=== PATIENT | female | born 1960 | race Caucasian/White ===

== ENCOUNTER 2019-09-04 07:17 | Outpatient (CLI) | payer BC ==
[2019-09-04 11:21] LABS: Bacteria/HPF 4+ HPF (None Seen); Bilirubin Negative (Negative); Blood, Urine Negative (Negative); Clarity Clear (Clear); Glucose, Urine (Dipstick) Normal (Negative); Leukocyte Negative Leu/uL (Negative); Nitrite Negative (Negative); Protein, Urine (Dipstick) Negative (Neg-Trace); RBC/HPF 0-3 HPF (0-3); Squamous Epithelial 0-3 HPF (0-3); Urobilinogen Normal mg/dL (Less than 2); WBC/HPF 0-3 HPF (0-3)
== END 2019-09-04 07:18 | disposition home or self-care (01) ==
LOC: LABBT 07:17
PROVIDERS: ATTEND Orthopaedic Surgery
DX: Z01.812 Encounter for preprocedural laboratory examination (principal); G56.02 Carpal tunnel syndrome, left upper limb; G56.22 Lesion of ulnar nerve, left upper limb
CPT/HCPCS: 81001

== ENCOUNTER 2019-09-06 06:40 | Day surgery (SDC) | payer BC ==
[2019-09-04 09:13] VITALS: BMI 25.0
[2019-09-06 07:53] LABS: #Basophils 0.1 thou/uL (0.0-0.2); #Eosinphils 0.4 thou/uL (0.0-0.7); #Lymphocytes 2.3 thou/uL (1.20-3.40); #Monocytes 0.7 thou/uL (0.11-0.59); #Neutrophils 5.4 thou/uL (1.40-6.50); %Basophils 0.8 % (0.0-1.0); %Eosinophils 4.2 % (0.0-10.0); %Lymphocytes 25.7 % (21.0-51.0); %Monocytes 8.1 % (0.0-10.0); %Neutrophils 61.2 % (42.0-75.0); Hemoglobin 13.8 g/dL (12.0-16.0); Mean Corpuscular HGB CONC 34.1 g/dL (32.0-36.0); Mean Corpuscular Hemoglobin 29.5 pg (27.0-31.0); Mean Corpuscular Volume 86.4 fL (78.0-98.0); Mean Platelet Volume 7.8 fL (7.4-10.4); Platelet Count 221 thou/uL (130-400); RBC Distribution Width 11.9 % (11.5-14.5); Red Blood Cell (RBC) Count 4.68 mill/uL (4.20-5.40); White Blood Cell (WBC) Count 8.9 thou/uL (4.8-10.8)
[2019-09-06] MEDS ORDERED: Lidocaine 1% w/Epinephrine 1:100K 20 ML VIAL ONE (10:36)
[2019-09-06] MEDS ORDERED: Fentanyl 100 MCG/2 ML VIAL ONE ×2 (10:48→12:13)
[2019-09-06] MEDS ORDERED: Bupivacaine 0.25% HCL 30 ML VIAL ONE (11:08)
[2019-09-06] MEDS ORDERED: Ondansetron PF 4 MG/2 ML Vial ONE (13:25)
[2019-09-06] MEDS ORDERED: PROPOFOL 200 MG/20 ML VIAL ONE (13:25)
[2019-09-06] MEDS ORDERED: Lidocaine 1% PF 5 ML VIAL ONE (13:25)
[2019-09-06] MEDS ORDERED: HYDROcodone/Acetaminophen 5/325 mg Tablet ONE (14:01)
--- NOTE | 2019-09-06 19:16 | OP ---
DATE OF PROCEDURE: 09/06/2019 PREOPERATIVE DIAGNOSES: 1. Left cubital tunnel syndrome. 2. Left carpal tunnel syndrome. POSTOPERATIVE DIAGNOSES: 1. Left cubital tunnel syndrome. 2. Left carpal tunnel syndrome. PROCEDURES PERFORMED: 1. Open cubital tunnel release. 2. Left open carpal tunnel release. CLASSROOM MONITOR: None. ANESTHESIOLOGIST: Brian. ANESTHESIA: Patient received a LMA with 7 cc of 0.25% Marcaine plain in the elbow and 7 cc of 0.25% Marcaine plain in the wrist. ESTIMATED BLOOD LOSS: Less than 10 cc. TOURNIQUET TIME: 30 minutes at 250 mmHg. ANTIBIOTICS: Ancef 2. COMPLICATIONS: None. HISTORY OF PRESENT ILLNESS: Ms. Yin is a 59-year-old female with previous nerve conduction studies that were positive for carpal tunnel syndrome. The patient had sign and symptoms consistent with cubital tunnel. I discussed with the patient risks and benefits of a left open carpal tunnel release and left open cubital tunnel release to include pain, scar, bleeding, infection, damage to vital structures, decreased range of motion and strength, need for further surgeries, failure of procedure, continued pain despite surgical intervention, and loss of life or limb. The patient understood the risks and benefits of the procedure. DESCRIPTION OF PROCEDURE: After time-out was performed, the patient's left lower extremity was prepped and draped in sterile fashion. Tourniquet was brought up and left up for a total of 30 minutes. An incision was made over the patient's ulnar nerve posteriorly down through skin, came down to the patient's Calderon fascia releasing it. We made sure the fascia was released distally in between the muscle belly to ensure it was widened and the nerve was completely released and moved proximally, ensured it was completely released. Used finger to ensure that it was completely released proximally and freed from the transverse carpal ligament. We did an in situ decompression and washed, used the fascia of the Calderon ligament to sew it to the subcutaneous tissues with 0 Vicryl, 2 stitches. We then closed subcu with 2-0 and then 3-0 nylon and injected 7 cc of Marcaine. I then moved distally, used the incision down on the patient's radial aspect of the 4th ray down through skin, proximal up to the Dawkins's cardinal line down to skin, split through the fat, came down through the patient's palmar fascia, split through the patient's palmaris brevis and transverse carpal ligament, ensured it was released completely proximally, protected the nerve throughout, washed, and then closed with 4-0 nylon horizontal mattress stitches, injected 7 cc inside, placed soft tissue dressing, let the tourniquet down after 31 minutes. The patient will follow up in 2 weeks to begin range of motion activities, remove the dressing in 4 to 7 days. Job ID: [id number]
--- NOTE | 2019-09-07 08:29 | HP ---
HISTORY OF PRESENT ILLNESS: Ms. Yin is a 59-year-old female, presents with left hand and left upper extremity numbness and tingling from elbow to wrist. The patient has positive nerve conduction carpal tunnel, pain is 5/10. The pain has been present for several months. The patient has no heat injuries or events. The patient had previous release of her right wrist carpal tunnel and cubital tunnel by Dr. Pardo in April. PAST MEDICAL HISTORY: Includes hypertension, reflux, and hypercholesterolemia. PAST SURGICAL HISTORY: Hysterectomy, nasal surgery, cataract procedure, right trigger thumb release, right cubital tunnel release, and right carpal tunnel release. ALLERGIES: NO KNOWN DRUG ALLERGIES. MEDICATIONS: Include 1. Omeprazole. 2. Phentermine. 3. Rosuvastatin. 4. Triamterene/hydrochlorothiazide. SOCIAL HISTORY: One pack a day. [employer]. 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 She is . Alcohol occasionally. No illicit drug use. PHYSICAL EXAMINATION: GENERAL: Alert and oriented female, in no acute distress. EXTREMITIES: Left elbow shows no swelling, ecchymosis. No wounds noted. Positive tenderness ulnar, positive Tinel's. 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 Sensation diminished in the ulnar distribution of left wrist. Positive Phalen's. Decreased median distribution and ulnar distribution. Positive nerve conduction studies for carpal tunnel with no cubital tunnel noted. IMPRESSION: 1. Left cubital tunnel. 2. Left carpal tunnel. ASSESSMENT AND PLAN: The patient will be taken to the operating suite for a left open cubital tunnel and carpal tunnel release. I discussed risks and benefits of procedure including pain, scar, bleeding, infection, damage to vital structures nerve, decreased range of motion or strength, 12 to 18 months to resolve. I discussed that the patient's pain will likely be improved after this procedure, but sometimes can persist despite the release. I discussed the risk of damage to nerve. I discussed with her wound complications. She understands risks and benefits and elected to proceed. She will be taken back to the operative suite for a left carpal tunnel and cubital tunnel release. Job ID: [id number]
== END 2019-09-06 14:20 | disposition home or self-care (01) ==
LOC: SDC 06:40
PROVIDERS: ATTEND Orthopaedic Surgery
PROC: 01N40ZZ Release Ulnar Nerve, Open Approach (ICD-10-PCS; principal; 2019-09-06)
PROC: 01N50ZZ Release Median Nerve, Open Approach (ICD-10-PCS; principal; 2019-09-06)
DX: G56.02 Carpal tunnel syndrome, left upper limb (principal); G56.22 Lesion of ulnar nerve, left upper limb; I10 Essential (primary) hypertension; K21.9 Gastro-esophageal reflux disease without esophagitis; E78.00 Pure hypercholesterolemia, unspecified; F17.210 Nicotine dependence, cigarettes, uncomplicated; Z79.899 Other long term (current) drug therapy
CPT/HCPCS: 85025; J0690; J2001; J2405; J2704; J3010; S0020

== ENCOUNTER 2023-04-11 18:31 | Inpatient (IN) | payer OTHER ==
[2023-04-11] MEDS ORDERED: Acetaminophen 500 MG TAB PO PRN (22:13)
[2023-04-11 22:24] VITALS: BMI 32.8
[2023-04-11] MEDS ORDERED: Ibuprofen 600 MG TAB PO PRN (22:46)
[2023-04-11] MEDS ORDERED: Ipratropium/Albuterol 3 ML NEB NEB PRN (22:46)
[2023-04-11] MEDS ORDERED: Cyclobenzaprine 10 MG TAB PO PRN (22:46)
[2023-04-11] MEDS ORDERED: traMADol HCl 50 MG TAB PO PRN (22:46)
[2023-04-11] MEDS: Morphine 2 MG/ML VIAL SLOW IVP PRN (23:22)
[2023-04-11] MEDS: Acetaminophen 325 MG TAB PO SCH (23:23)
[2023-04-11] MEDS: Sodium Chloride 0.9% 1,000 ML IV SCH (23:23)
[2023-04-11] MEDS: traMADol HCl 50 MG TAB PO SCH (23:24)
[2023-04-11] MEDS ORDERED: Piperacillin/Tazobactam 3.375 GM in Sodium Chloride 0.9% 100 ML IVPB SCH (23:59)
[2023-04-12 00:08] LABS: #Basophils 0.1 thou/uL (0.0-0.2); #Eosinphils 0.2 thou/uL (0.0-0.7); #Monocytes 0.9 thou/uL (0.11-0.59); #Neutrophils 6.5 thou/uL (1.40-6.50); %Basophils 0.7 % (0.0-1.0); %Eosinophils 2.5 % (0.0-10.0); %Lymphocytes 19.3 % (21.0-51.0); %Monocytes 9.4 % (0.0-10.0); %Neutrophils 67.8 % (42.0-75.0); Hemoglobin 10.6 g/dL (12.0-16.0); Mean Corpuscular HGB CONC 32.6 g/dL (32.0-36.0); Mean Corpuscular Hemoglobin 28.5 pg (27.0-31.0); Mean Corpuscular Volume 87.4 fl (78.0-98.0); Mean Platelet Volume 10.1 fL (7.4-10.4); Platelet Count 210 10x3/uL (130-400); RBC Distribution Width 12.8 % (11.5-14.5); Red Blood Cell (RBC) Count 3.72 mill/uL (4.20-5.40); White Blood Cell (WBC) Count 9.6 10x3/uL (4.8-10.8)
[2023-04-12 00:21] LABS: INR-International Normal Ratio 1.1; PTT 33.9 sec (22.9-36.1); Prothrombin Time 14.3 sec (12.0-14.7)
[2023-04-12 00:32] LABS: BUN (Urea Nitrogen) 17 mg/dL (9.8-20.1); Calc. Creatinine Clearance 96 mL/min (70-130); Calcium 9.5 mg/dL (7.8-10.44); Chloride 106 mmol/L (98-107); Estimated GFR 76; Glucose 127 mg/dL (80-115); Magnesium 1.9 mg/dL (1.6-2.6); Phosphorus 3.1 mg/dL (2.3-4.7); Potassium 3.7 mmol/L (3.5-5.1); Sodium 138 mmol/L (136-145)
[2023-04-12 00:57] LABS: Anion Gap 13 mmol/L (10-20); Carbon Dioxide 24 mmol/L (23-31)
[2023-04-12] MEDS ORDERED: VANCOMYCIN 1.75 GM/500 ML BAG 1.75 GM in Premix Bag 1 BAG IVPB SCH (01:15)
[2023-04-12] MEDS: Acetaminophen 325 MG TAB PO SCH ×4 (05:05→22:51)
[2023-04-12] MEDS: Piperacillin/Tazobactam 3.375 GM in Sodium Chloride 0.9% 100 ML IVPB SCH ×3 (05:06→21:28)
[2023-04-12] MEDS: traMADol HCl 50 MG TAB PO SCH ×4 (05:07→22:52)
[2023-04-12] MEDS: Sodium Chloride 0.9% 1,000 ML IV SCH ×3 (06:42→21:29)
[2023-04-12] MEDS ORDERED: Sodium Chloride 0.9% 500 ML IV SCH ×2 (06:45→08:45)
[2023-04-12] MEDS: Senokot S 8.6-50 MG TAB PO SCH ×2 (09:05→21:29)
[2023-04-12] MEDS ORDERED: Ondansetron PF 4 MG/2 ML Vial IVP PRN (09:12)
[2023-04-12] MEDS ORDERED: Iopamidol 370 76% 100 ML VIAL ONE (09:31)
[2023-04-12] MEDS: VANCOMYCIN 1.25 GM/250 ML BAG 1.25 GM in Premix Bag 1 BAG IVPB SCH (15:55)
[2023-04-12] MEDS: Morphine 2 MG/ML VIAL SLOW IVP PRN ×2 (15:58→21:28)
[2023-04-12] MEDS ORDERED: fentaNYL 50 mcg/mL 1 mL Vial ONE (19:09)
[2023-04-12] MEDS ORDERED: fentaNYL PF 100 MCG/2 ML SYRINGE ONE (19:17)
[2023-04-12] MEDS ORDERED: Promethazine HCl 25 MG/ML VIAL ONE (19:17)
[2023-04-12] MEDS ORDERED: HYDROmorphone 0.5 MG/0.5 ML SYRINGE ONE (19:17)
[2023-04-12] MEDS ORDERED: Piperacillin/Tazobactam 3.375 GM VIAL ONE (19:21)
[2023-04-12] MEDS ORDERED: Sodium Chloride 0.9% 100 ML ONE (19:21)
[2023-04-12] MEDS ORDERED: PROPOFOL 200 MG/20 ML VIAL ONE (19:32)
[2023-04-12] MEDS ORDERED: Lidocaine 1% PF 5 ML VIAL ONE (19:32)
[2023-04-12] MEDS ORDERED: ePHEDrine Sulfate 50 MG/10 ML VIAL ONE (19:32)
[2023-04-12] MEDS ORDERED: Ketorolac Tromethamine 30 MG/ML VIAL ONE (19:32)
[2023-04-12] MEDS ORDERED: Dexamethasone 20 MG/5 ML VIAL ONE (19:32)
[2023-04-12] MEDS ORDERED: Ondansetron PF 4 MG/2 ML Vial ONE (19:32)
[2023-04-12] MEDS ORDERED: Promethazine HCl 25 MG/ML VIAL IM PRN (20:24)
[2023-04-12] MEDS ORDERED: HYDROmorphone 2 MG/ML VIAL SLOW IVP PRN (20:24)
[2023-04-12] MEDS ORDERED: PACU-Morphine 4MG/ML VIAL SLOW IVP PRN (20:24)
[2023-04-12] MEDS ORDERED: Ondansetron HCl/PF 4 MG/2 ML Vial IVP PRN (20:24)
[2023-04-13] MEDS: Morphine 2 MG/ML VIAL SLOW IVP PRN (00:22)
[2023-04-13] MEDS: VANCOMYCIN 1.25 GM/250 ML BAG 1.25 GM in Premix Bag 1 BAG IVPB SCH ×2 (02:25→13:03)
[2023-04-13] MEDS: traMADol HCl 50 MG TAB PO SCH ×2 (04:47→11:50)
[2023-04-13] MEDS: Piperacillin/Tazobactam 3.375 GM in Sodium Chloride 0.9% 100 ML IVPB SCH ×2 (04:48→11:51)
[2023-04-13] MEDS: Acetaminophen 325 MG TAB PO SCH ×2 (06:43→11:49)
[2023-04-13] MEDS: Sodium Chloride 0.9% 1,000 ML IV SCH (07:56)
[2023-04-13] MEDS: Senokot S 8.6-50 MG TAB PO SCH (08:55)
[2023-04-13 09:34] VITALS: TEMP 98
[2023-04-13 12:12] VITALS: BP 112/65
== END 2023-04-13 14:30 | disposition home or self-care (01) | DRG 747 ==
LOC: OBSVTOIN 18:31 → SURG A 18:31
PROVIDERS: ADMIT Surgery; ATTEND Surgery
PROC: 0U9M0ZZ Drainage of Vulva, Open Approach (ICD-10-PCS; principal; 2023-04-12)
DX: N76.4 Abscess of vulva (principal); I10 Essential (primary) hypertension; K21.9 Gastro-esophageal reflux disease without esophagitis; E78.5 Hyperlipidemia, unspecified; Z79.899 Other long term (current) drug therapy; Z90.710 Acquired absence of both cervix and uterus; Z98.890 Other specified postprocedural states
CPT/HCPCS: 36415; 74177; 83735; 84100; 85610; 85730; 86850; 86900; 86901; 87070; 87077; 87186; 87205; 97139; J1100; J1170; J1885; J2272; J2405; J2543; J2550; J2704; J3010; J3370; J3490; J7030; J7050; Q9967

== ENCOUNTER 2023-07-26 09:27 | Outpatient (CLI) | payer OTHER | END 2023-07-26 09:28 | disposition home or self-care (01) | LOC: BICMAMMO 09:27 | PROVIDERS: ATTEND Registered Nurse | DX: Z12.31 Encounter for screening mammogram for malignant neoplasm of breast (principal) | CPT/HCPCS: 77063; 77067 ==